=== PATIENT | female | born 1995 | race Caucasian/White ===

== ENCOUNTER → 2020-11-17 13:18 | Outpatient (CLI) | payer OTHER, SELFPAY ==
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
== END ==
PROVIDERS: Referring Provider Urology; Visit Provider Urology
DX: Z09 Encounter for follow-up examination after completed treatment for conditions other than malignant neoplasm (principal); Z87.440 Personal history of urinary (tract) infections
CPT/HCPCS: 76770

== ENCOUNTER 2022-01-23 14:09 | Emergency (ER) | payer OTHER, SELFPAY ==
[2022-01-23 14:11] VITALS: BP 119/67; PULSE 92; RESP 20; TEMP 36.6; O2SAT 98
--- NOTE | 2022-01-23 14:13 | DI.RAD.S_ITS ---
PROCEDURE: XR KNEE LT 3V INDICATIONS: pain after hyperextension TECHNIQUE: 3 views of the knee were acquired. COMPARISON: None. FINDINGS: Bones: No fractures or dislocations. No suspicious bony lesions. Soft tissues: No joint effusion. No suspicious soft tissue calcifications. IMPRESSION: No acute fracture. No osseous lesion. If symptoms and/or clinical suspicion for pathology persist, further assessment with repeat, or advanced imaging (e.g., CT, MRI, or bone scan) may be helpful for further assessment. Dictated by: Cierra Cruz M.D. on 01/23/2022 at 14:29 Approved by: Cierra Cruz M.D. on 01/23/2022 at 14:29
[2022-01-23 15:25] VITALS: O2SAT 100
[2022-01-23 15:26] VITALS: BP 118/73; PULSE 73; O2SAT 100
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
[2022-01-23 17:22] VITALS: BP 120/80; PULSE 75; RESP 16; O2SAT 99
== END 2022-01-23 17:23 | disposition home or self-care (01) ==
PROVIDERS: Emergency Provider Student in an Organized Health Care Education/Training Program
DX: M25.562 Pain in left knee (principal)
CPT/HCPCS: 73562; 99283

== ENCOUNTER 2022-08-08 07:19 | Emergency (ER) | payer OTHER, SELFPAY ==
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
[2022-08-08 07:30] VITALS: BP 134/89; PULSE 85; RESP 16; TEMP 36.6; O2SAT 100; BMI 32.5
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
== END 2022-08-08 08:32 | disposition home or self-care (01) ==
PROVIDERS: Emergency Provider Emergency Medicine
DX: M54.2 Cervicalgia (principal); M54.6 Pain in thoracic spine; R07.89 Other chest pain; V89.2XXA Person injured in unspecified motor-vehicle accident, traffic, initial encounter
CPT/HCPCS: 71045; 72125; 72128; 99283; 99284